=== PATIENT | female | born 1995 | race Caucasian/White ===

== ENCOUNTER 2017-07-10 08:44 | Emergency (ER) | payer MEDICAID, OTHER ==
[~2017-07-10] VITALS: Ht 162.6 cm; Wt 98.0 kg
[~2017-07-10 08:44] MED LIST: CELE10TA9 PO; QUET1TAB67 PO
[2017-07-10 08:53] VITALS: BP 143/86; PULSE 86; RESP 19; TEMP 98; O2SAT 99
[2017-07-10] MEDS ORDERED: CARB100C42 PO (09:04)
[2017-07-10] MEDS ORDERED: CITA20TA4 PO (09:04)
[2017-07-10] MEDS ORDERED: LEVE750T8 PO (09:04)
[2017-07-10] MEDS ORDERED: TRAZ50TA12 PO (09:05)
--- NOTE | 2017-07-10 09:30 | PD ---
HPI Chief Complaint: Seizure Time Seen by Provider: 09:09 Travel History International Travel<30 days: No Contact w/Intl Traveler<30days: No Traveled to known affect area: No History of Present Illness HPI The patient was seen and examined in the presence of the nurse. This patient was at school and had some sort of event. She is mentally challenged and cannot provide any reliable history or review of systems. She takes medication for seizure but also has history of pseudoseizure. She is very infantile in her mannerisms, holding a perez bear and crying. She says that 1 of her classmates started hitting her chair and this got her upset she had some sort of event they thought might of been seizure-like. At this point it is unclear what exactly happened. She cannot tell me and there are no eyewitnesses to discuss with. At this point she feels okay. PFSH Past Medical History ADHD: No Cancer: No Cardiovascular Problems: No Diabetes: No Diminished Hearing: No Psychiatric: Yes (hearing voices,depression) Migraines: No Seizures: Yes Thyroid Disease: No Ulcer: No Tetanus Vaccination: Unknown Influenza Vaccination: No ?: Not LMP: 06/16/17 Social History Alcohol Use: No Tobacco Use: No Substance Use: No Allergies-Medications (Allergen,Severity, Reaction): Coded Allergies: No Known Allergies (Unverified , 01/24/13) Reported Meds & Prescriptions Reported Meds & Active Scripts Active Reported Trazodone (Trazodone HCl) 50 Mg Tab 50 Mg PO HS Citalopram (Citalopram Hydrobromide) 20 Mg Tab 20 Mg PO DAILY Levetiracetam 750 Mg Tab 750 Mg PO BID Carbamazepine ER 12 HR (Carbamazepine) 100 Mg Cap 100 Mg PO Q12HR Review of Systems ROS Limitations: Clinical Condition, Poor Historian Physical Exam Narrative GENERAL: Well-nourished, well-developed patient in no apparent distress. SKIN: Focused skin assessment reveals no rash and nodules. Skin is Warm and dry. HEAD: Atraumatic. Normocephalic. EYES: Pupils equal and round. No scleral icterus. No injection or drainage. ENT: No nasal bleeding or discharge. Mucous membranes pink and moist. NECK: Trachea midline. No JVD. CARDIOVASCULAR: Regular rate and rhythm. No murmur appreciated. RESPIRATORY: No accessory muscle use. Clear to auscultation. Breath sounds equal bilaterally. GASTROINTESTINAL: Abdomen soft, non-tender, nondistended. Hepatic and splenic margins not palpable. MUSCULOSKELETAL: No obvious deformities. No clubbing. No cyanosis. No edema. NEUROLOGICAL: Awake and alert. No obvious cranial nerve deficits. Motor grossly within normal limits. Normal speech. PSYCHIATRIC: Anxious and tearful mood and affect; insight and judgment poor . Data Data Last Documented VS Vital Signs Date Time Temp Pulse Resp B/P (MAP) Pulse Ox O2 Delivery O2 Flow Rate FiO2 07/10/17 09:01 20 98 Room Air 07/10/17 08:53 98.0 86 143/86 (105) Orders Orders Iv Access Insert/Monitor (07/10/17 09:25) Complete Blood Count With Diff (07/10/17 09:25) Basic Metabolic Panel (Bmp) (07/10/17 09:25) Carbamazepine (Tegretol) (07/10/17 09:25) Labs Laboratory Tests Test 07/10/17 09:30 White Blood Count 9.3 TH/MM3 Red Blood Count 5.12 MIL/MM3 Hemoglobin 12.9 GM/DL Hematocrit 39.3 % Mean Corpuscular Volume 76.7 FL Mean Corpuscular Hemoglobin 25.3 PG Mean Corpuscular Hemoglobin Concent 33.0 % Red Cell Distribution Width 14.6 % Platelet Count 284 TH/MM3 Mean Platelet Volume 7.8 FL Neutrophils (%) (Auto) 62.9 % Lymphocytes (%) (Auto) 26.6 % Monocytes (%) (Auto) 9.3 % Eosinophils (%) (Auto) 1.0 % Basophils (%) (Auto) 0.2 % Neutrophils # (Auto) 5.8 TH/MM3 Lymphocytes # (Auto) 2.5 TH/MM3 Monocytes # (Auto) 0.9 TH/MM3 Eosinophils # (Auto) 0.1 TH/MM3 Basophils # (Auto) 0.0 TH/MM3 CBC Comment DIFF FINAL Differential Comment Blood Urea Nitrogen 12 MG/DL Creatinine 0.49 MG/DL Random Glucose 75 MG/DL Calcium Level 8.4 MG/DL Sodium Level 138 MEQ/L Potassium Level 4.1 MEQ/L Chloride Level 107 MEQ/L Carbon Dioxide Level 24.8 MEQ/L Anion Gap 6 MEQ/L Estimat Glomerular Filtration Rate 161 ML/MIN Carbamazepine (Tegretol) Level 5.0 MCG/ML [facility] Medical Decision Making Medical Screen Exam Complete: Yes Emergency Medical Condition: Yes Medical Record Reviewed: Yes Differential Diagnosis Seizure, pseudoseizure, anxiety Narrative Course I have reviewed the patient's electronic medical record. She was last year in 2012 IV placed Lab studies sent Tegretol level is 5 Other labs are normal Mother has arrived and reports that the patient has the [id number] events. She gets stressed easily and whenever startled starts rapidly blinking her eyes. I observed her for a while and has been no recurrence of events. Mother will take her home Diagnosis Primary Impression: Pseudoseizure Additional Instructions: The patient was advised to follow up with their physician and return if they worsen. Med/Other Pt SpecificInfo: Other Disposition: DISCHARGE HOME Condition: Stable James Neal MD Jul 10, 2017 09:30
[2017-07-10 09:46] LABS: AUTOMATED NEUTROPHIL # 5.8 TH/MM3 (1.8-7.7); BASOPHIL % 0.2 % (0.0-2.0); EOSINOPHIL # 0.1 TH/MM3 (0-0.4); HEMATOCRIT 39.3 % (35.0-46.0); HEMOGLOBIN 12.9 GM/DL (11.6-15.3); LYMPH % 26.6 % (9.0-44.0); LYMPHOCYTE # 2.5 TH/MM3 (1.0-4.8); MEAN CELL VOLUME 76.7 FL (80.0-100.0); MEAN CORPUSCULAR HEMOGLOBIN 25.3 PG (27.0-34.0); MEAN PLATELET VOLUME 7.8 FL (7.0-11.0); MONO % 9.3 % (0.0-8.0); MONOCYTE # 0.9 TH/MM3 (0-0.9); NEUT % 62.9 % (16.0-70.0); PLATELET COUNT 284 TH/MM3 (150-450); RED BLOOD COUNT 5.12 MIL/MM3 (4.00-5.30); RED CELL DISTRIBUTION WIDTH 14.6 % (11.6-17.2); WHITE BLOOD COUNT 9.3 TH/MM3 (4.0-11.0)
[2017-07-10 10:01] LABS: BICARBONATE 24.8 MEQ/L (21.0-32.0); CALCIUM 8.4 MG/DL (8.5-10.1); CREATININE 0.49 MG/DL (0.50-1.00)
[2017-07-10 12:30] VITALS: BP 113/61; PULSE 81; RESP 18; O2SAT 98
== END 2017-07-10 13:17 | disposition home or self-care (01) ==
LOC: NEPC 08:44
DX: F44.5 Conversion disorder with seizures or convulsions (principal)
CPT/HCPCS: 80048; 80156; 85025; 99283

== ENCOUNTER 2017-09-03 10:31 | Emergency (ER) | payer OTHER ==
[~2017-09-03] VITALS: Ht 165.1 cm; Wt 95.5 kg
[~2017-09-03 10:31] MED LIST changes: +CARB100C42 PO; -CELE10TA9 PO; +CITA20TA4 PO; +LEVE750T8 PO; -QUET1TAB67 PO; +TRAZ50TA12 PO
[2017-09-03 10:33] VITALS: BP 134/96; PULSE 74; RESP 15; TEMP 98; O2SAT 98
--- NOTE | 2017-09-03 10:37 | PD ---
HPI Chief Complaint: Seizure Time Seen by Provider: 10:32 Travel History International Travel<30 days: No Contact w/Intl Traveler<30days: No Traveled to known affect area: No History of Present Illness HPI Today the patient was having some episodes of seizures, was brought in by private vehicle by her mother. Patient is under neurological care, and is currently on Keppra for seizure control, has been under care and receiving medications for the past 4 years. Patient apparently had the same yesterday and presented to [facility] with did not some blood work and discharged patient home. The patient has an appointment on September 22 of this year to have additional workup to see if they need to adjust her dosage. Per mother since June of this year the patient has had more frequent seizures which prompted the new appointment to have reevaluation of her symptoms along with additional studies and repeat studies that she is already had. No known drug allergy Past medical history of seizures also an apparent history of depression PFSH Past Medical History ADHD: No Cancer: No Cardiovascular Problems: No Diabetes: No Diminished Hearing: No Psychiatric: Yes (hearing voices,depression) Migraines: No Seizures: Yes Thyroid Disease: No Ulcer: No Social History Alcohol Use: No Tobacco Use: No Substance Use: No Allergies-Medications (Allergen,Severity, Reaction): Coded Allergies: No Known Allergies (Verified Adverse Reaction, Unknown, 09/03/17) Reported Meds & Prescriptions Reported Meds & Active Scripts Active Reported Trazodone (Trazodone HCl) 50 Mg Tab 50 Mg PO HS Citalopram (Citalopram Hydrobromide) 20 Mg Tab 20 Mg PO DAILY Levetiracetam 750 Mg Tab 750 Mg PO BID Carbamazepine ER 12 HR (Carbamazepine) 100 Mg Cap 100 Mg PO Q12HR Review of Systems General / Constitutional: No: Fever Eyes: No: Visual changes HENT: No: Headaches Cardiovascular: No: Chest Pain or Discomfort Respiratory: No: Shortness of Breath Gastrointestinal: No: Abdominal Pain Genitourinary: No: Dysuria Musculoskeletal: No: Pain Skin: No Rash Neurologic: Positive: Seizures Psychiatric: No: Depression Endocrine: No: Polydipsia Hematologic/Lymphatic: No: Easy Bruising Physical Exam Narrative GENERAL: SKIN: Warm and dry. HEAD: Atraumatic. Normocephalic. EYES: Pupils equal and round. No scleral icterus. No injection or drainage. ENT: No nasal bleeding or discharge. Mucous membranes pink and moist. NECK: Trachea midline. No JVD. CARDIOVASCULAR: Regular rate and rhythm. RESPIRATORY: No accessory muscle use. Clear to auscultation. Breath sounds equal bilaterally. GASTROINTESTINAL: Abdomen soft, non-tender, nondistended. MUSCULOSKELETAL: Extremities without clubbing, cyanosis, or edema. No obvious deformities. NEUROLOGICAL: Awake and alert. No obvious cranial nerve deficits. Motor grossly within normal limits. Five out of 5 muscle strength in the arms and legs. Normal speech. PSYCHIATRIC: Appropriate mood and affect; insight and judgment normal. Data Data Last Documented VS Vital Signs Date Time Temp Pulse Resp B/P (MAP) Pulse Ox O2 Delivery O2 Flow Rate FiO2 09/03/17 11:25 79 12 117/71 (86) 100 Room Air 09/03/17 10:33 98.0 Orders Orders Complete Blood Count With Diff (09/03/17 10:32) Comprehensive Metabolic Panel (09/03/17 10:32) Creatine Kinase (Cpk) (09/03/17 10:32) Magnesium (Mg) (09/03/17 10:32) Thyroid Stimulating Hormone (09/03/17 10:32) Osmolality,Serum (09/03/17 10:32) Ct Brain W/O Iv Contrast(Rout) (09/03/17 10:32) Iv Access Insert/Monitor (09/03/17 10:32) Ecg Monitoring (09/03/17 10:32) Oximetry (09/03/17 10:32) Blood Glucose (09/03/17 10:32) Drug Screen, Random Urine (09/03/17 10:32) Alcohol (Ethanol) (09/03/17 10:32) Salicylates (Aspirin) (09/03/17 10:32) Tylenol (Acetaminophen) (09/03/17 10:32) Lorazepam Inj (Ativan Inj) (09/03/17 10:45) Levetiracetam (09/03/17 10:37) Labs Laboratory Tests Test 09/03/17 10:30 09/03/17 11:23 White Blood Count 11.4 TH/MM3 Red Blood Count 5.09 MIL/MM3 Hemoglobin 13.0 GM/DL Hematocrit 39.4 % Mean Corpuscular Volume 77.4 FL Mean Corpuscular Hemoglobin 25.5 PG Mean Corpuscular Hemoglobin Concent 32.9 % Red Cell Distribution Width 15.6 % Platelet Count 289 TH/MM3 Mean Platelet Volume 8.1 FL Neutrophils (%) (Auto) 62.6 % Lymphocytes (%) (Auto) 29.8 % Monocytes (%) (Auto) 6.5 % Eosinophils (%) (Auto) 0.6 % Basophils (%) (Auto) 0.5 % Neutrophils # (Auto) 7.2 TH/MM3 Lymphocytes # (Auto) 3.4 TH/MM3 Monocytes # (Auto) 0.7 TH/MM3 Eosinophils # (Auto) 0.1 TH/MM3 Basophils # (Auto) 0.1 TH/MM3 CBC Comment DIFF FINAL Differential Comment Blood Urea Nitrogen 9 MG/DL Creatinine 0.65 MG/DL Random Glucose 88 MG/DL Total Protein 8.0 GM/DL Albumin 3.7 GM/DL Calcium Level 8.6 MG/DL Magnesium Level 2.1 MG/DL Alkaline Phosphatase 112 U/L Aspartate Amino Transf (AST/SGOT) 16 U/L Alanine Aminotransferase (ALT/SGPT) 22 U/L Total Bilirubin 0.3 MG/DL Sodium Level 139 MEQ/L Potassium Level 4.0 MEQ/L Chloride Level 107 MEQ/L Carbon Dioxide Level 24.9 MEQ/L Anion Gap 7 MEQ/L Estimat Glomerular Filtration Rate 115 ML/MIN Serum Osmolality 293 MOSM/KG Total Creatine Kinase 58 U/L Thyroid Stimulating Hormone 3rd Gen 0.721 uIU/ML Salicylates Level LESS THAN 1.7 MG/DL Acetaminophen Level LESS THAN 2.0 MCG/ML Ethyl Alcohol Level LESS THAN 3 MG/DL Urine Opiates Screen NEG Urine Barbiturates Screen NEG Urine Amphetamines Screen NEG Urine Benzodiazepines Screen NEG Urine Cocaine Screen NEG Urine Cannabinoids Screen NEG MDM Medical Decision Making Medical Screen Exam Complete: Yes Emergency Medical Condition: Yes Medical Record Reviewed: Yes Differential Diagnosis Hypoglycemia versus electrolyte abnormality versus intracranial hemorrhage versus brain tumor Narrative Course CBC shows no leukocytosis, no anemia, no left shift, and normal platelet count Tox screen negative for presence of salicylates Tylenol or alcohol. Also negative for opiates and amphetamines benzodiazepines cocaine or marijuana Electrolytes are all within normal limits, normal kidney liver functions, normal osmolarity, and normal TSH screen CT head is negative for any intracranial hemorrhage or brain mass Diagnosis Primary Impression: Possible seizure Patient Instructions: General Instructions, Generalized Tonic Clonic Seizures ( ED) Additional Instructions: Continue taking your medications (Keppra) and keep your appointment to follow- up with your neurologist in [facility] for further evaluation. Disposition: 01 DISCHARGE HOME Condition: Stable Luis Eduardo Pacheco MD Sep 03, 2017 10:37
[2017-09-03 10:38] VITALS: BP 134/96; PULSE 76; RESP 15; O2SAT 99
[2017-09-03] MEDS ORDERED: LORazepam 2 MG/ML VIAL IV PUSH ONE (10:45)
[2017-09-03 11:07] LABS: AUTOMATED NEUTROPHIL # 7.2 TH/MM3 (1.8-7.7); BASOPHIL # 0.1 TH/MM3 (0-0.2); BASOPHIL % 0.5 % (0.0-2.0); EOSINOPHIL # 0.1 TH/MM3 (0-0.4); EOSINOPHIL % 0.6 % (0.0-4.0); HEMATOCRIT 39.4 % (35.0-46.0); LYMPH % 29.8 % (9.0-44.0); LYMPHOCYTE # 3.4 TH/MM3 (1.0-4.8); MEAN CELL VOLUME 77.4 FL (80.0-100.0); MEAN CORPUSCULAR HEMOGLOBIN 25.5 PG (27.0-34.0); MEAN CORPUSCULAR HGB CONC 32.9 % (32.0-36.0); MEAN PLATELET VOLUME 8.1 FL (7.0-11.0); MONO % 6.5 % (0.0-8.0); MONOCYTE # 0.7 TH/MM3 (0-0.9); NEUT % 62.6 % (16.0-70.0); PLATELET COUNT 289 TH/MM3 (150-450); RED BLOOD COUNT 5.09 MIL/MM3 (4.00-5.30); RED CELL DISTRIBUTION WIDTH 15.6 % (11.6-17.2); WHITE BLOOD COUNT 11.4 TH/MM3 (4.0-11.0)
[2017-09-03 11:11] LABS: ALBUMIN 3.7 GM/DL (3.4-5.0); BICARBONATE 24.9 MEQ/L (21.0-32.0); BLOOD UREA NITROGEN 9 MG/DL (7-18); CALCIUM 8.6 MG/DL (8.5-10.1); CHLORIDE 107 MEQ/L (98-107); GLUCOSE,RANDOM 88 MG/DL (74-106); MAGNESIUM 2.1 MG/DL (1.5-2.5); SODIUM (NA) 139 MEQ/L (136-145)
[2017-09-03 11:12] LABS: AST (GOT) 16 U/L (15-37); CREATININE 0.65 MG/DL (0.50-1.00); GLOMERULAR FILTRATION RATE 115 ML/MIN (>89)
[2017-09-03 11:20] LABS: ALKALINE PHOSPHATASE 112 U/L (45-117); ALT (GPT) 22 U/L (10-53); TOTAL BILIRUBIN ADULT 0.3 MG/DL (0.2-1.0)
[2017-09-03 11:25] VITALS: BP 117/71; PULSE 79; RESP 12; O2SAT 100
[2017-09-03 11:31] LABS: ACETAMINOPHEN LESS THAN 2.0 MCG/ML (10.0-30.0)
--- NOTE | 2017-09-03 12:02 | RADRPT ---
EXAM DATE/TIME: 09/03/2017 11:44 [facility] COMPARISON: No previous studies available for comparison. INDICATIONS : Seizure RADIATION DOSE: 56.77 CTDIvol (mGy) MEDICAL HISTORY : Seizures. SURGICAL HISTORY : None. ENCOUNTER: Initial ACUITY: 1 day PAIN SCALE: 0/10 LOCATION: cranial TECHNIQUE: Multiple contiguous axial images were obtained of the head. Using automated exposure control and adj ustment of the mA and/or kV according to patient size, radiation dose was kept as low as reasonably a chievable to obtain optimal diagnostic quality images. DICOM format image data is available electro nically for review and comparison. FINDINGS: CEREBRUM: The ventricles are normal for age. No evidence of midline shift, mass lesion, hemorrhage or acute in farction. No extra-axial fluid collections are seen. POSTERIOR FOSSA: The cerebellum and brainstem are intact. The 4th ventricle is midline. The cerebellopontine angle i s unremarkable. EXTRACRANIAL: The visualized portion of the orbits is intact. SKULL: The calvaria is intact. No evidence of skull fracture. CONCLUSION: Normal examination. Karl Cagle MD on September 03, 2017 at 11:54 Board Certified Radiologist. This report was verified electronically.
[2017-09-03 14:15] VITALS: BP 113/68
== END 2017-09-03 14:17 | disposition home or self-care (01) ==
LOC: NEPD 10:31
DX: R56.9 Unspecified convulsions (principal); F32.9 Major depressive disorder, single episode, unspecified
CPT/HCPCS: 70450; 80053; 80177; 80307; 82550; 83735; 83930; 84443; 85025; 96374; 99284; J2060